=== PATIENT | male | born 1940 | race Caucasian/White ===

== ENCOUNTER 2020-06-17 19:31 | Emergency (ER) | payer MEDICARE, SELFPAY ==
[2020-06-17 19:32] VITALS: BP 153/89; PULSE 76; RESP 14; TEMP 36.6; O2SAT 98; BMI 29.7
--- NOTE | 2020-06-17 19:45 | HMH.EDUTC ---
[facility] [place] Clinical Impression: URI (upper respiratory infection) Qualifiers: URI type: unspecified URI Qualified Code(s): J06.9 - Acute upper respiratory infection, unspecified Disposition: Home, Self-Care Condition on Discharge: Good Instructions: DI for COVID-19 (Suspected or Confirmed ), COVID-19: Testing and Tracing, Preventing the Spread of Coronavirus Discharge Instructions Additional Instructions: *Monitor Temp, Over the counter Motrin or Tylenol as directed/as needed Tylenol every 4 hours and Motrin every 6 hours (as long as your family doctor has told you that you can take it) for fever or pain. and straight to ER if unable to lower temp less than 101.0 after medication given *Warm salt water gargles may help to soothe the throat *Throat Lozenges *Warm fluids like tea with honey may help to soothe the throat *Sleep elevated *Humidifier/Vaporizer Follow up IMMEDIATELY for new or worsening symptoms or no Noticeable improvement over the next 48-72 hours. 911 for difficulty breathing or swallowing You were tested for today for COVID19 your test result should be back in the next 24-48 hours, you may call to the [facility] to see if your test results are back in the next 48 hours [phone] [facility] hours are 9am-9pm You was given a handout with instructions for Self Quarantine and Self isolation for while you wait on test results and what to do if they are positive If you are positive the Health Dept will be contacting you also Prescriptions: Benzonatate [Tessalon Perle 100mg Cap*] 100 mg PO BID PRN #10 cap PRN Reason: Cough Transmission Status: P[id number] Azithromycin [Z-Emerson 250mg Tab] 250 mg PO DIRECTED #6 tab Transmission Status: [facility] Referrals: Prince Butler [Primary Care Provider] - As needed Time of Disposition: 19:50 Medical Decision Making - Cong Inquiry Pt receiving controlled substance: No Cong was queried for this patient: No Vital Signs: 06/17/20 19:32 Temperature 98 F Temperature Source Oral Pulse Rate [Right] 76 Respiratory Rate 14 Blood Pressure [Right Arm] 153/89 H Blood Pressure Mean [Right Arm] 110 02 Sat by Pulse Oximetry 98 [facility] [place] HPI - General Stated complaint: sore throat,body aches Time Seen by Provider: 06/17/20 19:45 Description of Symptoms (Recalled from Triage Doc. by RN): pt requested COVID test pt c/o Boothe sore throat, fever chills HEENT Symptoms (Recalled from RN notes): Yes Resp Symptoms (Recalled from RN notes): Yes Skin Symptoms (Recalled from RN notes): No MS Symptoms (Recalled from RN notes): No Functional Status (Recalled from RN notes): wnl - History of Present Illness Provider Complaint: Patient state that he has been having bad sore throat and hurts when he swallows, drainage and cough State that his was recently dx with COVID States that he dont think he has it States that today he came in to get something for his sore throat Denies known fever. - Related Data Home Medications Medication Instructions Recorded Confirmed carvedilol 25 mg tablet PO 30 Days #60 tab 04/09/18 07/23/18 enalapril maleate 5 mg tablet PO 30 Days #60 tab 04/09/18 07/23/18 levothyroxine 50 mcg tablet PO 90 Days #90 tab 04/09/18 07/23/18 metoprolol tartrate 50 mg tablet PO 90 Days #135 tab 04/09/18 07/23/18 pantoprazole 40 mg tablet,delayed PO 30 Days #30 tab 04/09/18 07/23/18 release Previous Rx's Medication Instructions Recorded loratadine 10 mg tablet 10 mg PO DAILY #30 tab 07/23/18 Azithromycin [Z-Emerson 250mg Tab] 250 mg PO DIRECTED #6 tab 06/17/20 Benzonatate [Tessalon Perle 100mg 100 mg PO BID PRN #10 cap 06/17/20 Cap*] Allergies Allergy/AdvReac Type Severity Reaction Status Date / Time ciprofloxacin [From CIPRO] Allergy Mild Verified 06/17/20 19:51 Fcngalh-Lcv-Abn Reductase Allergy Unknown LEG PAIN Verified 06/17/20 19:51 Inhibitor [[id number] REDUCTASE INHIBITOR]
[2020-06-17 19:57] VITALS: BP 153/89; PULSE 76; RESP 14; TEMP 36.7; O2SAT 98
[2020-06-19 08:51] LABS: Covid-19 Nasal PCR Sendout P&C POSITIVE
--- NOTE | 2020-06-19 09:32 | PC.NURSE ---
patient informed of positive covid results
== END 2020-06-17 20:02 | disposition home or self-care (01) ==
PROVIDERS: Emergency Provider Nurse Practitioner; PCP Pediatrics
DX: U07.1 COVID-19 (principal); I10 Essential (primary) hypertension; E03.9 Hypothyroidism, unspecified; Z88.8 Allergy status to other drugs, medicaments and biological substances; Z79.899 Other long term (current) drug therapy
CPT/HCPCS: G0463; 99202; U0004

== ENCOUNTER → 2020-11-03 14:03 | Outpatient (POV) | payer MEDICARE, SELFPAY | PROVIDERS: Visit Provider Dermatology | DX: Z00.00 Encounter for general adult medical examination without abnormal findings (principal) ==

== ENCOUNTER → 2022-11-15 14:55 | Outpatient (CLI) | payer MEDICARE, SELFPAY ==
--- NOTE | 2022-11-15 15:02 | XR_ITS ---
FINAL REPORT CLINICAL HISTORY: knee pain FINDINGS: 3 stent views of the right knee were obtained. There is no acute fracture or dislocation. There are moderate degenerative changes greatest in the patellofemoral compartment. There is a suprapatellar calcification. There is no soft tissue abnormality. IMPRESSION: Moderate degenerative change. Reviewed, Interpreted and Dictated by Alex Bliss III, MD Transcribed by Delonte Godinez Authenticated and [facility]
== END ==
PROVIDERS: PCP Pediatrics; Visit Provider Orthopaedic Surgery
DX: M25.561 Pain in right knee (principal)
CPT/HCPCS: 73562